=== PATIENT | male | born 1985 | race Caucasian/White ===

== ENCOUNTER 2020-06-29 14:34 | Outpatient (REF) | payer MEDICAID, SELFPAY | END 2020-06-29 14:35 | disposition home or self-care (01) | LOC: HO.LAB 14:34 | PROVIDERS: Visit Provider Internal Medicine | DX: Z20.822 Contact with and (suspected) exposure to COVID-19 (principal) | CPT/HCPCS: 36415; C9803; U0003; U0005 ==

== ENCOUNTER 2021-09-17 21:02 | Emergency (ER) | payer MEDICAID, SELFPAY | END 2021-09-18 00:12 | disposition left against medical advice (07) | LOC: HO.ED 22:43 | PROVIDERS: Emergency Provider Emergency Medicine | DX: S81.819A Laceration without foreign body, unspecified lower leg, initial encounter (principal); W45.8XXA Other foreign body or object entering through skin, initial encounter; Y93.9 Activity, unspecified; Y92.9 Unspecified place or not applicable; Y99.9 Unspecified external cause status ==